=== PATIENT | male | born 2000 | race African-American/Black ===

== ENCOUNTER 2019-07-24 09:30 | Emergency (ER) | payer BC ==
[~2019-07-24] VITALS: Ht 177.8 cm; Wt 63.2 kg
[2019-07-24 09:33] VITALS: Ht 177.8 cm; Wt 63.2 kg
[2019-07-24 10:22] LABS: BASOPHIL % 0.3 % (0-2); PLATELET COUNT 282 x10^3mcL (130-400); RED CELL DISTRIBUTION WIDTH 13.4 % (11.5-14.5)
[2019-07-24 10:37] LABS: CALCIUM 9.8 mg/dL (8.5-10.1); CARBON DIOXIDE 29.3 mmol/L (21-32); CHLORIDE SERUM 104 mmol/L (98-107); CREATININE SERUM 0.9 mg/dL (0.7-1.3); GFR1 > 60 mL/min; GLUCOSE SERUM 103 mg/dL (74-106); POTASSIUM SERUM 4.3 mmol/L (3.5-5.1); SODIUM SERUM 140 mmol/L (136-145)
[2019-07-24 10:43] LABS: ALBUMIN 4.7 g/dL (3.4-5.0); ALKALINE PHOSPHATASE 63 U/L (46-116); ALT/SGPT 22 U/L (16-63); AST/SGOT 21 U/L (15-37); BILIRUBIN TOTAL 0.67 mg/dL (0.20-1.00); LIPASE 56 IU/L (73-393)
[2019-07-24 10:44] LABS: TOTAL PROTEIN, SERUM 8.5 g/dL (6.4-8.2)
[2019-07-24 12:05] LABS: AMPHETAMINE QUAL UR NONE DETECTED (See below)
[2019-07-24 12:35] VITALS: BP 120/80
== END 2019-07-24 12:35 | disposition home or self-care (01) ==
LOC: ED 09:30
PROVIDERS: Emergency Medicine
DX: F19.10 Other psychoactive substance abuse, uncomplicated (principal); F20.9 Schizophrenia, unspecified
CPT/HCPCS: J2405; J7030

== ENCOUNTER 2019-07-24 13:52 | Emergency (ER) | payer BC ==
[~2019-07-24] VITALS: Ht 177.8 cm; Wt 62.6 kg
[2019-07-24 14:05] VITALS: Ht 177.8 cm; Wt 62.6 kg
[2019-07-24 18:28] VITALS: BP 132/79
== END 2019-07-24 18:28 | disposition home or self-care (01) ==
LOC: ED 13:52
DX: R56.9 Unspecified convulsions (principal); R11.2 Nausea with vomiting, unspecified; R51 Headache; F19.10 Other psychoactive substance abuse, uncomplicated
CPT/HCPCS: Q0162